=== PATIENT | male | born 2000 | race Two or more races ===

== ENCOUNTER 2023-03-02 22:27 | Emergency (ER) | payer OTHER ==
[~2023-03-02] VITALS: Ht 167.6 cm; Wt 109.0 kg
[2023-03-02] MEDS ORDERED: KETOROLAC TROMETH 60MG/2ML VIAL IM ONE (22:45)
[2023-03-02 23:00] LABS: Urine Bacteria NONE SEEN /hpf (None Seen); Urine Blood Negative /uL (Negative); Urine Clarity Clear (Clear); Urine Color Yellow (Yellow); Urine Mucus FEW (None Seen); Urine Protein, UAD TRACE (Negative); Urine Specific Gravity 1.024 (1.001-1.035); Urine Urobilinogen Normal (Negative); Urine WBC 1 /hpf (0 - 3)
[2023-03-02 23:14] LABS: Basophils # (auto) 0 10 ^3/uL (0-0.2); Basophils % (auto) 0.1 % (0.0-2.0); Eosinophils # (auto) 0.1 10 ^3/uL (0-0.8); Eosinophils % (auto) 0.4 % (0.0-7.0); Hemoglobin 16.3 g/dL (13.5-17.5); Lymphocytes # (auto) 3.2 10 ^3/uL (0.4-5.4); Lymphocytes % (auto) 18.3 % (10.0-50.0); Mean Corpuscular Volume 85.4 fL (80.0-100.0); Monocytes # (auto) 0.8 10 ^3/uL (0-1.3); Monocytes % (auto) 4.6 % (0.0-12.0); Neutrophils # (auto) 13.3 10 ^3/uL (1.6-8.6); Neutrophils % (auto) 76.6 % (37.0-80.0); Nucleated Red Blood Cells % 0.1 %; Red Blood Cells 5.63 10^6/uL (4.5-5.90); Red Cell Distribution Width 13.2 % (11.8-14.3); White Blood Cell 17.3 10^3/uL (4.4-10.8)
[2023-03-02 23:26] LABS: Albumin 4.6 g/dL (3.4-5.0); Calcium 9.5 mg/dL (8.5-10.1); Potassium 3.3 mmol/L (3.5-5.1)
[2023-03-02 23:28] LABS: BUN/Creatinine Ratio 11.4 (10.0-20.0)
[2023-03-02 23:30] LABS: Bilirubin, Total 0.5 mg/dL (0.2-1.0); Total Protein 8.8 g/dL (6.4-8.2)
[2023-03-03 00:35] VITALS: BP 133/83; PULSE 64; RESP 16; TEMP 98.2; O2SAT 98
== END 2023-03-03 01:17 | disposition left against medical advice (07) ==
LOC: ER 22:30
DX: R10.11 Right upper quadrant pain (principal); R11.0 Nausea; Z53.21 Procedure and treatment not carried out due to patient leaving prior to being seen by health care provider
CPT/HCPCS: 36415; 74176; 80053; 81001; 83690; 85025; 99281; J1885

== ENCOUNTER 2023-03-03 10:50 | Inpatient (IN) | payer OTHER ==
[~2023-03-03] VITALS: Ht 167.6 cm; Wt 103.0 kg
[2023-03-03] MEDS ORDERED: KETOROLAC TROMETH 30 MG/ML 1ML VIAL IV ONE (11:30)
[2023-03-03] MEDS ORDERED: SODIUM CHLORIDE 0.9% 1,000 ML IVB ONE (11:30)
[2023-03-03] MEDS ORDERED: MORPHINE SULFATE 4 MG/ML SYR/VIAL IV ONE (14:15)
[2023-03-03] MEDS ORDERED: ONDANSETRON HCL 4 MG/2 ML VIAL IV ONE (14:15)
[2023-03-03] MEDS ORDERED: PANTOPRAZOLE 40 MG/10 ML VIAL INJ IV ONE (18:15)
[2023-03-03] MEDS ORDERED: metroNIDAZOLE 500MG/100ML 100 ML IV ONE (18:15)
[2023-03-03] MEDS ORDERED: levoFLOXacin 500MG 100 ML IV ONE (18:15)
[2023-03-03] MEDS ORDERED: POTASSIUM EFFERVESENT TAB 25 MEQ PO ONE (18:30)
[2023-03-03] MEDS: SODIUM CHLORIDE 0.9% 1,000 ML IV SCH (19:12)
[2023-03-03 19:20] LABS: INR 1.07 (0.9-1.15); Prothrombin Time 11.2 sec (9.3-11.8)
[2023-03-03] MEDS: metroNIDAZOLE 500MG/100ML 100 ML IV SCH (22:31)
[2023-03-04] VITALS (7 sets, daily range): BP systolic 118–139; BP diastolic 64–86; PULSE 99–128; RESP 14–20; TEMP 98–100.9; O2SAT 91–100
[2023-03-04] MEDS: SODIUM CHLORIDE 0.9% 1,000 ML IV SCH ×3 (02:35→15:29)
[2023-03-04] MEDS: metroNIDAZOLE 500MG/100ML 100 ML IV SCH ×3 (04:57→22:42)
[2023-03-04] MEDS: HYDROcodone-ACET 5/325MG TAB PO PRN ×2 (06:38→23:49)
[2023-03-04 07:24] LABS: Basophils # (auto) 0 10 ^3/uL (0-0.2); Basophils % (auto) 0.1 % (0.0-2.0); Eosinophils # (auto) 0 10 ^3/uL (0-0.8); Hemoglobin 14.9 g/dL (13.5-17.5); Lymphocytes # (auto) 0.5 10 ^3/uL (0.4-5.4); Lymphocytes % (auto) 2.6 % (10.0-50.0); Mean Corpuscular Hemoglobin 29.2 pg (28.0-32.0); Mean Corpuscular Hgb Conc. 33.9 g/dL (32.0-36.0); Mean Corpuscular Volume 86.3 fL (80.0-100.0); Monocytes # (auto) 0.9 10 ^3/uL (0-1.3); Monocytes % (auto) 4.5 % (0.0-12.0); Neutrophils # (auto) 19.4 10 ^3/uL (1.6-8.6); Neutrophils % (auto) 92.8 % (37.0-80.0); Red Cell Distribution Width 13.3 % (11.8-14.3); White Blood Cell 20.9 10^3/uL (4.4-10.8)
[2023-03-04 08:09] LABS: Potassium 3.6 mmol/L (3.5-5.1)
[2023-03-04 08:18] LABS: Albumin 3.8 g/dL (3.4-5.0); BUN/Creatinine Ratio 9.7 (10.0-20.0); Bilirubin, Total 5.8 mg/dL (0.2-1.0); Calcium 8.6 mg/dL (8.5-10.1); Total Protein 7.4 g/dL (6.4-8.2)
[2023-03-04] MEDS: ONDANSETRON HCL 4 MG/2 ML VIAL IV PRN ×2 (09:49→16:13)
[2023-03-04] MEDS: MORPHINE SULFATE INJ 2 MG/ml SYRG IV PRN ×2 (09:50→16:14)
[2023-03-04] MEDS: PANTOPRAZOLE 40 MG/10 ML VIAL INJ IV SCH (10:29)
[2023-03-04] MEDS: levoFLOXacin 500MG 100 ML IV SCH (10:29)
[2023-03-04] MEDS: ACETAMINOPHEN 325 MG TAB PO PRN (16:13)
[2023-03-05 05:00] VITALS: BP 140/90; PULSE 140; RESP 90; TEMP 100.3; O2SAT 98
[2023-03-05] MEDS: SODIUM CHLORIDE 0.9% 1,000 ML IV SCH ×2 (05:15→22:10)
[2023-03-05] MEDS: ACETAMINOPHEN 325 MG TAB PO PRN (05:16)
[2023-03-05] MEDS: metroNIDAZOLE 500MG/100ML 100 ML IV SCH ×3 (05:21→22:10)
[2023-03-05 08:00] VITALS: RESP 16
[2023-03-05 09:00] VITALS: BP 128/78; PULSE 120; RESP 20; TEMP 99.1; O2SAT 90
[2023-03-05] MEDS ORDERED: SODIUM CHLORIDE 0.9% 1,000 ML IV SCH (09:30)
[2023-03-05 10:14] LABS: Basophils # (auto) 0 10 ^3/uL (0-0.2); Basophils % (auto) 0.1 % (0.0-2.0); Eosinophils # (auto) 0 10 ^3/uL (0-0.8); Hematocrit 44.7 % (41.0-53.0); Hemoglobin 15.1 g/dL (13.5-17.5); Lymphocytes # (auto) 0.7 10 ^3/uL (0.4-5.4); Lymphocytes % (auto) 4.8 % (10.0-50.0); Mean Corpuscular Hemoglobin 29.3 pg (28.0-32.0); Mean Corpuscular Hgb Conc. 33.8 g/dL (32.0-36.0); Mean Corpuscular Volume 86.6 fL (80.0-100.0); Monocytes # (auto) 0.6 10 ^3/uL (0-1.3); Monocytes % (auto) 4.6 % (0.0-12.0); Neutrophils # (auto) 12.3 10 ^3/uL (1.6-8.6); Neutrophils % (auto) 90.5 % (37.0-80.0); Nucleated Red Blood Cells % 0.3 %; Red Blood Cells 5.16 10^6/uL (4.5-5.90); Red Cell Distribution Width 13.8 % (11.8-14.3); White Blood Cell 13.6 10^3/uL (4.4-10.8)
[2023-03-05 10:35] LABS: Potassium 3.8 mmol/L (3.5-5.1)
[2023-03-05 10:42] LABS: Albumin 3.1 g/dL (3.4-5.0); Bilirubin, Total 6.3 mg/dL (0.2-1.0); Calcium 8.5 mg/dL (8.5-10.1); Total Protein 7.2 g/dL (6.4-8.2)
[2023-03-05] MEDS: levoFLOXacin 500MG 100 ML IV SCH (10:55)
[2023-03-05] MEDS: PANTOPRAZOLE 40 MG/10 ML VIAL INJ IV SCH (10:55)
[2023-03-05] MEDS: HYDROcodone-ACET 5/325MG TAB PO PRN ×2 (12:11→20:10)
[2023-03-05] MEDS: ONDANSETRON HCL 4 MG/2 ML VIAL IV PRN (12:11)
[2023-03-05 13:00] VITALS: BP 123/73; PULSE 100; PULSE 111; RESP 18; TEMP 98.1; O2SAT 85
[2023-03-05 14:30] LABS: Urine Bacteria FEW /hpf (None Seen); Urine Blood Negative /uL (Negative); Urine Clarity Clear (Clear); Urine Mucus FEW (None Seen); Urine Protein, UAD 1+ (Negative); Urine Specific Gravity 1.033 (1.001-1.035); Urine WBC 4 /hpf (0 - 3)
[2023-03-05 14:40] LABS: Urine Color Yellow (Yellow)
[2023-03-05 15:21] LABS: COVID19 ANTIGEN SOFIA FIA NEGATIVE (NEGATIVE)
[2023-03-05 17:00] VITALS: BP 126/77; PULSE 115; RESP 20; TEMP 99.3; O2SAT 91
[2023-03-05 22:00] VITALS: BP 141/83; PULSE 121; RESP 18; TEMP 99.4; O2SAT 95
[2023-03-06] MEDS: metroNIDAZOLE 500MG/100ML 100 ML IV SCH ×3 (05:52→21:38)
[2023-03-06] MEDS: ONDANSETRON HCL 4 MG/2 ML VIAL IV PRN ×5 (06:46→23:43)
[2023-03-06 07:26] LABS: Basophils # (auto) 0 10 ^3/uL (0-0.2); Basophils % (auto) 0.1 % (0.0-2.0); Eosinophils # (auto) 0 10 ^3/uL (0-0.8); Eosinophils % (auto) 0.1 % (0.0-7.0); Hematocrit 45.4 % (41.0-53.0); Hemoglobin 15.5 g/dL (13.5-17.5); Lymphocytes # (auto) 0.5 10 ^3/uL (0.4-5.4); Lymphocytes % (auto) 5.6 % (10.0-50.0); Mean Corpuscular Hemoglobin 29.6 pg (28.0-32.0); Mean Corpuscular Hgb Conc. 34.2 g/dL (32.0-36.0); Mean Corpuscular Volume 86.6 fL (80.0-100.0); Monocytes # (auto) 0.6 10 ^3/uL (0-1.3); Monocytes % (auto) 7.3 % (0.0-12.0); Neutrophils # (auto) 7.3 10 ^3/uL (1.6-8.6); Neutrophils % (auto) 86.9 % (37.0-80.0); Nucleated Red Blood Cells % 0.1 %; Red Blood Cells 5.24 10^6/uL (4.5-5.90); Red Cell Distribution Width 13.9 % (11.8-14.3); White Blood Cell 8.4 10^3/uL (4.4-10.8)
[2023-03-06 07:31] LABS: Albumin 2.7 g/dL (3.4-5.0); Potassium 4.4 mmol/L (3.5-5.1)
[2023-03-06 07:35] LABS: BUN/Creatinine Ratio 14.6 (10.0-20.0); Bilirubin, Total 5.4 mg/dL (0.2-1.0); Total Protein 7.2 g/dL (6.4-8.2)
[2023-03-06 09:00] VITALS: BP 134/86; PULSE 115; RESP 18; TEMP 99.4; O2SAT 90
[2023-03-06] MEDS: PANTOPRAZOLE 40 MG/10 ML VIAL INJ IV SCH (09:59)
[2023-03-06] MEDS: levoFLOXacin 500MG 100 ML IV SCH (09:59)
[2023-03-06] MEDS: SODIUM CHLORIDE 0.9% 1,000 ML IV SCH ×2 (10:01→22:10)
[2023-03-06 13:49] VITALS: BP 139/88; PULSE 108; RESP 20; TEMP 97.9; O2SAT 97
[2023-03-06] MEDS: ACETAMINOPHEN 325 MG TAB PO PRN (15:32)
[2023-03-06 17:00] VITALS: BP 144/79; PULSE 100; RESP 18; TEMP 99.9; O2SAT 98
[2023-03-06 20:00] VITALS: PULSE 103
[2023-03-06 22:00] VITALS: BP 149/85; PULSE 109; RESP 19; TEMP 99.7; O2SAT 82
[2023-03-07] VITALS (7 sets, daily range): BP systolic 118–144; BP diastolic 74–84; PULSE 77–107; RESP 17–20; TEMP 98.1–99.8; O2SAT 88–95
[2023-03-07] MEDS: ACETAMINOPHEN 325 MG TAB PO PRN (02:24)
[2023-03-07] MEDS: metroNIDAZOLE 500MG/100ML 100 ML IV SCH ×3 (05:19→21:08)
[2023-03-07] MEDS: SODIUM CHLORIDE 0.9% 1,000 ML IV SCH ×3 (05:22→23:45)
[2023-03-07 06:12] LABS: Basophils # (auto) 0 10 ^3/uL (0-0.2); Basophils % (auto) 0.3 % (0.0-2.0); Eosinophils # (auto) 0 10 ^3/uL (0-0.8); Eosinophils % (auto) 0.2 % (0.0-7.0); Hematocrit 42.4 % (41.0-53.0); Hemoglobin 14.5 g/dL (13.5-17.5); Lymphocytes % (auto) 17.8 % (10.0-50.0); Mean Corpuscular Hemoglobin 29.6 pg (28.0-32.0); Mean Corpuscular Hgb Conc. 34.1 g/dL (32.0-36.0); Mean Corpuscular Volume 86.6 fL (80.0-100.0); Monocytes # (auto) 0.4 10 ^3/uL (0-1.3); Monocytes % (auto) 8.1 % (0.0-12.0); Neutrophils % (auto) 73.6 % (37.0-80.0); Nucleated Red Blood Cells % 0.1 %; Red Blood Cells 4.89 10^6/uL (4.5-5.90); Red Cell Distribution Width 13.9 % (11.8-14.3); White Blood Cell 5.4 10^3/uL (4.4-10.8)
[2023-03-07] MEDS: ONDANSETRON HCL 4 MG/2 ML VIAL IV PRN ×3 (06:17→20:14)
[2023-03-07 06:22] LABS: Potassium 3.8 mmol/L (3.5-5.1)
[2023-03-07 06:28] LABS: Albumin 2.6 g/dL (3.4-5.0); BUN/Creatinine Ratio 17.1 (10.0-20.0); Bilirubin, Total 4.2 mg/dL (0.2-1.0); Calcium 8.3 mg/dL (8.5-10.1); Total Protein 5.8 g/dL (6.4-8.2)
[2023-03-07] MEDS: PANTOPRAZOLE 40 MG/10 ML VIAL INJ IV SCH (09:27)
[2023-03-07] MEDS: levoFLOXacin 500MG 100 ML IV SCH (09:27)
[2023-03-07] MEDS ORDERED: SODIUM CHLORIDE 0.9% 1,000 ML IV SCH (12:15)
[2023-03-08] VITALS (7 sets, daily range): BP systolic 118–129; BP diastolic 79–84; PULSE 62–75; RESP 15–20; TEMP 97.6–98.9; O2SAT 92–96
[2023-03-08] MEDS: metroNIDAZOLE 500MG/100ML 100 ML IV SCH ×3 (05:02→21:17)
[2023-03-08 07:38] LABS: Basophils # (auto) 0 10 ^3/uL (0-0.2); Basophils % (auto) 0.5 % (0.0-2.0); Eosinophils # (auto) 0 10 ^3/uL (0-0.8); Eosinophils % (auto) 0.3 % (0.0-7.0); Hematocrit 44.4 % (41.0-53.0); Hemoglobin 15.2 g/dL (13.5-17.5); Lymphocytes # (auto) 1.7 10 ^3/uL (0.4-5.4); Lymphocytes % (auto) 18.8 % (10.0-50.0); Mean Corpuscular Hemoglobin 29.5 pg (28.0-32.0); Mean Corpuscular Hgb Conc. 34.2 g/dL (32.0-36.0); Mean Corpuscular Volume 86.3 fL (80.0-100.0); Monocytes # (auto) 0.8 10 ^3/uL (0-1.3); Monocytes % (auto) 9.4 % (0.0-12.0); Neutrophils # (auto) 6.3 10 ^3/uL (1.6-8.6); Nucleated Red Blood Cells % 0.1 %; Red Blood Cells 5.14 10^6/uL (4.5-5.90); Red Cell Distribution Width 14.4 % (11.8-14.3); White Blood Cell 8.9 10^3/uL (4.4-10.8)
[2023-03-08 08:05] LABS: Albumin 2.6 g/dL (3.4-5.0); Calcium 8.7 mg/dL (8.5-10.1); Potassium 4.2 mmol/L (3.5-5.1)
[2023-03-08 08:10] LABS: BUN/Creatinine Ratio 17.6 (10.0-20.0); Bilirubin, Total 2.7 mg/dL (0.2-1.0)
[2023-03-08] MEDS: PANTOPRAZOLE 40 MG/10 ML VIAL INJ IV SCH (09:28)
[2023-03-08] MEDS: SODIUM CHLORIDE 0.9% 1,000 ML IV SCH ×2 (09:28→23:45)
[2023-03-08] MEDS: levoFLOXacin 500MG 100 ML IV SCH (09:28)
[2023-03-09 04:39] LABS: COVID19 ANTIGEN SOFIA FIA NEGATIVE (NEGATIVE)
[2023-03-09 05:00] VITALS: BP 118/76; PULSE 75; RESP 20; TEMP 98.6; O2SAT 96
[2023-03-09] MEDS: metroNIDAZOLE 500MG/100ML 100 ML IV SCH ×3 (05:26→21:15)
[2023-03-09 08:00] VITALS: PULSE 57
[2023-03-09] MEDS: PANTOPRAZOLE 40 MG/10 ML VIAL INJ IV SCH (08:23)
[2023-03-09] MEDS: levoFLOXacin 500MG 100 ML IV SCH (08:23)
[2023-03-09 09:08] VITALS: BP 127/82; PULSE 80; RESP 15; TEMP 97.8; O2SAT 97
[2023-03-09 10:53] LABS: Basophils # (auto) 0.1 10 ^3/uL (0-0.2); Basophils % (auto) 0.5 % (0.0-2.0); Eosinophils # (auto) 0.1 10 ^3/uL (0-0.8); Eosinophils % (auto) 0.9 % (0.0-7.0); Hematocrit 44.9 % (41.0-53.0); Hemoglobin 15.1 g/dL (13.5-17.5); Lymphocytes # (auto) 1.9 10 ^3/uL (0.4-5.4); Lymphocytes % (auto) 20.7 % (10.0-50.0); Mean Corpuscular Hemoglobin 29.1 pg (28.0-32.0); Mean Corpuscular Hgb Conc. 33.7 g/dL (32.0-36.0); Mean Corpuscular Volume 86.4 fL (80.0-100.0); Monocytes # (auto) 0.7 10 ^3/uL (0-1.3); Monocytes % (auto) 7.1 % (0.0-12.0); Neutrophils # (auto) 6.5 10 ^3/uL (1.6-8.6); Neutrophils % (auto) 70.8 % (37.0-80.0); Nucleated Red Blood Cells % 0.1 %; Red Cell Distribution Width 14.3 % (11.8-14.3); White Blood Cell 9.2 10^3/uL (4.4-10.8)
[2023-03-09 11:13] LABS: Calcium 8.4 mg/dL (8.5-10.1); Potassium 3.4 mmol/L (3.5-5.1)
[2023-03-09 11:16] LABS: Albumin 2.7 g/dL (3.4-5.0); BUN/Creatinine Ratio 22.4 (10.0-20.0)
[2023-03-09 11:19] LABS: Bilirubin, Total 2.3 mg/dL (0.2-1.0); Total Protein 6.9 g/dL (6.4-8.2)
[2023-03-09 12:54] VITALS: BP 115/76; PULSE 63; RESP 14; TEMP 98.2; O2SAT 97
[2023-03-09] MEDS: SODIUM CHLORIDE 0.9% 1,000 ML IV SCH ×2 (15:08→21:16)
[2023-03-09 17:14] VITALS: BP 116/78; PULSE 55; RESP 16; TEMP 98.4; O2SAT 98
[2023-03-09 20:00] VITALS: RESP 16; TEMP 36.9
[2023-03-10 05:00] VITALS: BP 111/74; PULSE 65; RESP 18; TEMP 98; O2SAT 97
[2023-03-10] MEDS: metroNIDAZOLE 500MG/100ML 100 ML IV SCH ×3 (06:38→21:41)
[2023-03-10 06:53] LABS: Basophils # (auto) 0 10 ^3/uL (0-0.2); Basophils % (auto) 0.4 % (0.0-2.0); Eosinophils # (auto) 0.2 10 ^3/uL (0-0.8); Eosinophils % (auto) 1.8 % (0.0-7.0); Hematocrit 42.5 % (41.0-53.0); Hemoglobin 14.6 g/dL (13.5-17.5); Lymphocytes # (auto) 2.4 10 ^3/uL (0.4-5.4); Lymphocytes % (auto) 24.1 % (10.0-50.0); Mean Corpuscular Hemoglobin 29.4 pg (28.0-32.0); Mean Corpuscular Hgb Conc. 34.4 g/dL (32.0-36.0); Mean Corpuscular Volume 85.4 fL (80.0-100.0); Monocytes # (auto) 0.9 10 ^3/uL (0-1.3); Monocytes % (auto) 8.7 % (0.0-12.0); Neutrophils # (auto) 6.4 10 ^3/uL (1.6-8.6); Red Blood Cells 4.98 10^6/uL (4.5-5.90); Red Cell Distribution Width 14.3 % (11.8-14.3); White Blood Cell 9.9 10^3/uL (4.4-10.8)
[2023-03-10 07:03] LABS: Potassium 3.6 mmol/L (3.5-5.1)
[2023-03-10 07:15] LABS: Albumin 2.6 g/dL (3.4-5.0); BUN/Creatinine Ratio 14.9 (10.0-20.0); Bilirubin, Total 1.8 mg/dL (0.2-1.0); Calcium 8.3 mg/dL (8.5-10.1); Total Protein 6.5 g/dL (6.4-8.2)
[2023-03-10 08:00] VITALS: BP 127/81; PULSE 56; RESP 17; TEMP 98; O2SAT 100
[2023-03-10 09:00] VITALS: BP 127/81; PULSE 56; RESP 17; TEMP 98; O2SAT 100
[2023-03-10] MEDS: PANTOPRAZOLE 40 MG/10 ML VIAL INJ IV SCH (09:39)
[2023-03-10] MEDS: levoFLOXacin 500MG 100 ML IV SCH (09:39)
[2023-03-10] MEDS: SODIUM CHLORIDE 0.9% 1,000 ML IV SCH ×2 (09:49→21:43)
[2023-03-10 12:44] VITALS: BP 122/82; PULSE 50; RESP 17; TEMP 97.6; O2SAT 98
[2023-03-10 16:55] VITALS: BP 112/73; PULSE 50; RESP 17; TEMP 97.8; O2SAT 98
[2023-03-10 22:00] VITALS: BP 115/71; PULSE 60; RESP 17; TEMP 98.6; O2SAT 96
[2023-03-11 05:00] VITALS: BP 109/59; PULSE 61; RESP 19; TEMP 98.4; O2SAT 94
[2023-03-11] MEDS: metroNIDAZOLE 500MG/100ML 100 ML IV SCH ×3 (06:22→21:34)
[2023-03-11 08:00] VITALS: BP 113/69; PULSE 67; RESP 20; TEMP 97.6; O2SAT 92
[2023-03-11] MEDS: levoFLOXacin 500MG 100 ML IV SCH (09:12)
[2023-03-11] MEDS: PANTOPRAZOLE 40 MG/10 ML VIAL INJ IV SCH (09:12)
[2023-03-11 09:33] LABS: Basophils # (auto) 0 10 ^3/uL (0-0.2); Basophils % (auto) 0.2 % (0.0-2.0); Eosinophils # (auto) 0.1 10 ^3/uL (0-0.8); Eosinophils % (auto) 1.5 % (0.0-7.0); Hematocrit 43.9 % (41.0-53.0); Hemoglobin 14.8 g/dL (13.5-17.5); Lymphocytes # (auto) 2.1 10 ^3/uL (0.4-5.4); Lymphocytes % (auto) 22.5 % (10.0-50.0); Mean Corpuscular Hemoglobin 29.1 pg (28.0-32.0); Mean Corpuscular Hgb Conc. 33.7 g/dL (32.0-36.0); Mean Corpuscular Volume 86.1 fL (80.0-100.0); Monocytes # (auto) 0.7 10 ^3/uL (0-1.3); Monocytes % (auto) 7.5 % (0.0-12.0); Neutrophils # (auto) 6.4 10 ^3/uL (1.6-8.6); Neutrophils % (auto) 68.3 % (37.0-80.0); Red Cell Distribution Width 14.4 % (11.8-14.3); White Blood Cell 9.4 10^3/uL (4.4-10.8)
[2023-03-11 09:54] LABS: Albumin 2.9 g/dL (3.4-5.0); Calcium 8.7 mg/dL (8.5-10.1); Potassium 3.8 mmol/L (3.5-5.1)
[2023-03-11 09:57] LABS: BUN/Creatinine Ratio 14.5 (10.0-20.0); Bilirubin, Total 1.5 mg/dL (0.2-1.0)
[2023-03-11] MEDS: SODIUM CHLORIDE 0.9% 1,000 ML IV SCH ×2 (12:17→17:45)
[2023-03-11 13:00] VITALS: BP 123/76; PULSE 59; RESP 16; TEMP 98; O2SAT 97
[2023-03-11 17:00] VITALS: BP 116/81; PULSE 59; RESP 16; TEMP 97.5; O2SAT 95
[2023-03-11 20:00] VITALS: PULSE 62; RESP 14
[2023-03-11 22:00] VITALS: BP 111/72; PULSE 62; RESP 14; TEMP 98.2; O2SAT 96
[2023-03-12 05:00] VITALS: BP 102/67; PULSE 60; RESP 14; TEMP 98.1; O2SAT 95
[2023-03-12] MEDS: metroNIDAZOLE 500MG/100ML 100 ML IV SCH ×3 (05:35→22:10)
[2023-03-12] MEDS: SODIUM CHLORIDE 0.9% 1,000 ML IV SCH ×2 (05:36→09:33)
[2023-03-12 06:12] LABS: Basophils # (auto) 0 10 ^3/uL (0-0.2); Basophils % (auto) 0.3 % (0.0-2.0); Eosinophils # (auto) 0.2 10 ^3/uL (0-0.8); Eosinophils % (auto) 1.9 % (0.0-7.0); Hematocrit 44.8 % (41.0-53.0); Hemoglobin 15.2 g/dL (13.5-17.5); Lymphocytes # (auto) 2.5 10 ^3/uL (0.4-5.4); Lymphocytes % (auto) 26.2 % (10.0-50.0); Mean Corpuscular Hemoglobin 29.4 pg (28.0-32.0); Mean Corpuscular Volume 86.5 fL (80.0-100.0); Monocytes # (auto) 0.8 10 ^3/uL (0-1.3); Monocytes % (auto) 8.3 % (0.0-12.0); Neutrophils # (auto) 6.1 10 ^3/uL (1.6-8.6); Neutrophils % (auto) 63.3 % (37.0-80.0); Nucleated Red Blood Cells % 0.1 %; Red Blood Cells 5.18 10^6/uL (4.5-5.90); Red Cell Distribution Width 14.5 % (11.8-14.3); White Blood Cell 9.6 10^3/uL (4.4-10.8)
[2023-03-12 06:30] LABS: Albumin 2.8 g/dL (3.4-5.0); Calcium 8.6 mg/dL (8.5-10.1); Potassium 4.1 mmol/L (3.5-5.1)
[2023-03-12 06:34] LABS: Bilirubin, Total 1.4 mg/dL (0.2-1.0); Total Protein 6.9 g/dL (6.4-8.2)
[2023-03-12 08:00] VITALS: RESP 18
[2023-03-12] MEDS: PANTOPRAZOLE 40 MG/10 ML VIAL INJ IV SCH (09:32)
[2023-03-12] MEDS: levoFLOXacin 500MG 100 ML IV SCH (09:32)
[2023-03-12 12:49] VITALS: BP 112/74; PULSE 77; RESP 16; TEMP 97.8; O2SAT 96
[2023-03-12 16:09] VITALS: BP 111/67; PULSE 66; RESP 17; TEMP 97.6; O2SAT 97
[2023-03-12 20:00] VITALS: PULSE 67; RESP 18
[2023-03-12 22:42] VITALS: BP 111/62; PULSE 67; RESP 18; TEMP 98.2; O2SAT 96
[2023-03-13] MEDS: SODIUM CHLORIDE 0.9% 1,000 ML IV SCH ×3 (03:24→19:45)
[2023-03-13 04:38] VITALS: BP 102/51; PULSE 63; RESP 18; TEMP 98.4; O2SAT 96
[2023-03-13] MEDS: metroNIDAZOLE 500MG/100ML 100 ML IV SCH ×3 (06:00→22:12)
[2023-03-13 06:01] LABS: Basophils # (auto) 0 10 ^3/uL (0-0.2); Basophils % (auto) 0.4 % (0.0-2.0); Eosinophils # (auto) 0.2 10 ^3/uL (0-0.8); Eosinophils % (auto) 2.1 % (0.0-7.0); Hematocrit 45.7 % (41.0-53.0); Hemoglobin 15.4 g/dL (13.5-17.5); Lymphocytes # (auto) 3.3 10 ^3/uL (0.4-5.4); Lymphocytes % (auto) 34.3 % (10.0-50.0); Mean Corpuscular Hemoglobin 29.4 pg (28.0-32.0); Mean Corpuscular Hgb Conc. 33.8 g/dL (32.0-36.0); Mean Corpuscular Volume 87.1 fL (80.0-100.0); Monocytes # (auto) 0.7 10 ^3/uL (0-1.3); Monocytes % (auto) 7.5 % (0.0-12.0); Neutrophils # (auto) 5.3 10 ^3/uL (1.6-8.6); Neutrophils % (auto) 55.7 % (37.0-80.0); Nucleated Red Blood Cells % 0.2 %; Red Blood Cells 5.25 10^6/uL (4.5-5.90); Red Cell Distribution Width 13.9 % (11.8-14.3); White Blood Cell 9.5 10^3/uL (4.4-10.8)
[2023-03-13 06:31] LABS: Potassium 3.7 mmol/L (3.5-5.1)
[2023-03-13 06:50] LABS: BUN/Creatinine Ratio 16.4 (10.0-20.0)
[2023-03-13 06:53] LABS: Bilirubin, Total 1.2 mg/dL (0.2-1.0)
[2023-03-13 08:00] VITALS: BP 106/59; PULSE 59; RESP 18; TEMP 98.6; O2SAT 100
[2023-03-13] MEDS: levoFLOXacin 500MG 100 ML IV SCH (09:42)
[2023-03-13] MEDS: PANTOPRAZOLE 40 MG/10 ML VIAL INJ IV SCH (09:42)
[2023-03-13 17:00] VITALS: BP 95/54; PULSE 74; RESP 20; TEMP 98.6; O2SAT 98
[2023-03-13 20:00] VITALS: PULSE 72; RESP 18; O2SAT 100
[2023-03-13 22:00] VITALS: BP 110/69; PULSE 72; RESP 12; TEMP 97.4; O2SAT 96
[2023-03-14 05:00] VITALS: BP 94/52; PULSE 63; RESP 12; TEMP 97.9; O2SAT 100
[2023-03-14] MEDS: SODIUM CHLORIDE 0.9% 1,000 ML IV SCH ×2 (05:45→15:45)
[2023-03-14] MEDS: metroNIDAZOLE 500MG/100ML 100 ML IV SCH ×3 (05:52→22:24)
[2023-03-14 08:00] VITALS: BP 101/62; PULSE 73; RESP 20; TEMP 98.7; O2SAT 100
[2023-03-14 10:20] LABS: Basophils # (auto) 0 10 ^3/uL (0-0.2); Basophils % (auto) 0.3 % (0.0-2.0); Eosinophils # (auto) 0.1 10 ^3/uL (0-0.8); Eosinophils % (auto) 1.7 % (0.0-7.0); Hematocrit 45.4 % (41.0-53.0); Hemoglobin 15.4 g/dL (13.5-17.5); Lymphocytes # (auto) 2.4 10 ^3/uL (0.4-5.4); Lymphocytes % (auto) 29.5 % (10.0-50.0); Mean Corpuscular Hemoglobin 29.2 pg (28.0-32.0); Mean Corpuscular Hgb Conc. 33.9 g/dL (32.0-36.0); Monocytes # (auto) 0.6 10 ^3/uL (0-1.3); Monocytes % (auto) 7.1 % (0.0-12.0); Neutrophils # (auto) 4.9 10 ^3/uL (1.6-8.6); Neutrophils % (auto) 61.4 % (37.0-80.0); Nucleated Red Blood Cells % 0.1 %; Red Blood Cells 5.28 10^6/uL (4.5-5.90)
[2023-03-14] MEDS: levoFLOXacin 500MG 100 ML IV SCH (10:20)
[2023-03-14] MEDS: PANTOPRAZOLE 40 MG/10 ML VIAL INJ IV SCH (10:20)
[2023-03-14 10:48] LABS: Potassium 4.2 mmol/L (3.5-5.1)
[2023-03-14 10:54] LABS: Albumin 3.1 g/dL (3.4-5.0); BUN/Creatinine Ratio 12.2 (10.0-20.0); Bilirubin, Total 1.1 mg/dL (0.2-1.0); Total Protein 7.2 g/dL (6.4-8.2)
[2023-03-14 12:42] LABS: Amylase 272 U/L (25-115)
[2023-03-14 12:51] LABS: Lipase 1886 U/L (73-393)
[2023-03-14 13:00] VITALS: BP 100/65; PULSE 83; TEMP 98.3; O2SAT 97
[2023-03-14 17:00] VITALS: BP_SYST 106; BP_SYST 93; BP_DIAS 53; BP_DIAS 79; PULSE 64; PULSE 73; RESP 20; TEMP 97.9; TEMP 98.6; O2SAT 90; O2SAT 97
[2023-03-14 20:00] VITALS: O2SAT 100
[2023-03-14 22:00] VITALS: BP 109/66; PULSE 70; RESP 18; TEMP 98.2; O2SAT 95
[2023-03-15] VITALS (7 sets, daily range): BP systolic 97–104; BP diastolic 54–64; PULSE 72–87; RESP 15–21; TEMP 97.4–98; O2SAT 96–100
[2023-03-15] MEDS: SODIUM CHLORIDE 0.9% 1,000 ML IV SCH ×3 (01:45→21:45)
[2023-03-15 04:59] LABS: Basophils # (auto) 0 10 ^3/uL (0-0.2); Basophils % (auto) 0.4 % (0.0-2.0); Eosinophils # (auto) 0.1 10 ^3/uL (0-0.8); Eosinophils % (auto) 1.5 % (0.0-7.0); Hematocrit 46.3 % (41.0-53.0); Hemoglobin 15.8 g/dL (13.5-17.5); Lymphocytes % (auto) 32.2 % (10.0-50.0); Mean Corpuscular Hemoglobin 29.4 pg (28.0-32.0); Mean Corpuscular Hgb Conc. 34.1 g/dL (32.0-36.0); Mean Corpuscular Volume 86.3 fL (80.0-100.0); Monocytes # (auto) 0.6 10 ^3/uL (0-1.3); Monocytes % (auto) 6.7 % (0.0-12.0); Neutrophils # (auto) 5.6 10 ^3/uL (1.6-8.6); Neutrophils % (auto) 59.2 % (37.0-80.0); Nucleated Red Blood Cells % 0.2 %; Red Blood Cells 5.37 10^6/uL (4.5-5.90); Red Cell Distribution Width 14.2 % (11.8-14.3); White Blood Cell 9.4 10^3/uL (4.4-10.8)
[2023-03-15 05:34] LABS: Calcium 9.2 mg/dL (8.5-10.1); Magnesium 2.4 mg/dL (1.6-2.6); Potassium 3.6 mmol/L (3.5-5.1)
[2023-03-15 05:41] LABS: Albumin 3.3 g/dL (3.4-5.0); BUN/Creatinine Ratio 10.1 (10.0-20.0); Bilirubin, Total 1.3 mg/dL (0.2-1.0); Total Protein 7.3 g/dL (6.4-8.2)
[2023-03-15] MEDS: metroNIDAZOLE 500MG/100ML 100 ML IV SCH ×3 (06:18→21:13)
[2023-03-15] MEDS: levoFLOXacin 500MG 100 ML IV SCH (08:44)
[2023-03-15] MEDS: PANTOPRAZOLE 40 MG/10 ML VIAL INJ IV SCH (08:44)
[2023-03-16] VITALS (7 sets, daily range): BP systolic 97–116; BP diastolic 55–70; PULSE 60–81; RESP 14–20; TEMP 97.7–98.5; O2SAT 96–100
[2023-03-16] MEDS: metroNIDAZOLE 500MG/100ML 100 ML IV SCH ×3 (05:50→21:29)
[2023-03-16 06:24] LABS: Basophils # (auto) 0 10 ^3/uL (0-0.2); Basophils % (auto) 0.3 % (0.0-2.0); Eosinophils # (auto) 0.1 10 ^3/uL (0-0.8); Eosinophils % (auto) 1.5 % (0.0-7.0); Hematocrit 45.5 % (41.0-53.0); Hemoglobin 15.3 g/dL (13.5-17.5); Mean Corpuscular Hemoglobin 29.2 pg (28.0-32.0); Mean Corpuscular Hgb Conc. 33.6 g/dL (32.0-36.0); Mean Corpuscular Volume 86.7 fL (80.0-100.0); Monocytes # (auto) 0.7 10 ^3/uL (0-1.3); Monocytes % (auto) 8.1 % (0.0-12.0); Neutrophils % (auto) 56.1 % (37.0-80.0); Nucleated Red Blood Cells % 0.1 %; Red Blood Cells 5.24 10^6/uL (4.5-5.90); White Blood Cell 8.9 10^3/uL (4.4-10.8)
[2023-03-16 06:33] LABS: Albumin 3.1 g/dL (3.4-5.0); Calcium 8.9 mg/dL (8.5-10.1)
[2023-03-16 06:42] LABS: BUN/Creatinine Ratio 10.4 (10.0-20.0); Bilirubin, Total 1.3 mg/dL (0.2-1.0); Total Protein 7.1 g/dL (6.4-8.2)
[2023-03-16] MEDS: PANTOPRAZOLE 40 MG/10 ML VIAL INJ IV SCH (09:09)
[2023-03-16] MEDS: SODIUM CHLORIDE 0.9% 1,000 ML IV SCH ×2 (09:10→16:00)
[2023-03-16 11:42] LABS: COVID19 ANTIGEN SOFIA FIA NEGATIVE (NEGATIVE)
[2023-03-17 03:41] VITALS: BP 101/59; PULSE 60; RESP 16; TEMP 98.1; O2SAT 99
== END 2023-03-17 04:36 | disposition short-term general hospital (02) | DRG 871 ==
LOC: ER 10:50 → OVERFLOW 18:17 → WEST WING 03-04 02:59 → TELE-WESTW 03-05 14:05 → WEST WING 03-10 01:50
PROVIDERS: ADMIT Internal Medicine; ATTEND Student in an Organized Health Care Education/Training Program
DX: A41.9 Sepsis, unspecified organism (principal); K85.90 Acute pancreatitis without necrosis or infection, unspecified; K80.62 Calculus of gallbladder and bile duct with acute cholecystitis without obstruction; E87.6 Hypokalemia; Z20.822 Contact with and (suspected) exposure to COVID-19; E66.01 Morbid (severe) obesity due to excess calories; N20.0 Calculus of kidney; Z88.1 Allergy status to other antibiotic agents; Z79.899 Other long term (current) drug therapy; Z68.36 Body mass index [BMI] 36.0-36.9, adult
CPT/HCPCS: 36415; 74181; 76705; 80053; 80061; 81001; 82150; 83605; 83690; 83735; 84443; 85025; 85610; 87040; 87426; 93005; C9113; G0378; J1885; J1956; J2405; J3490